=== PATIENT | male | born 1990 | race Hispanic/Latino ===

== ENCOUNTER 2018-05-22 18:21 | Emergency (ER) | payer SELFPAY ==
[~2018-05-22] VITALS: Ht 172.7 cm; Wt 90.7 kg
[2018-05-22] MEDS ORDERED: TRIMETHOPRIM/SULFAMETHOXAZOLE 160-800 MG TAB PO ONE (19:30)
[2018-05-22] MEDS ORDERED: CLINDAMYCIN PHOS 600 MG/ 4 ML VIAL IM ONE (19:30)
== END 2018-05-22 19:55 | disposition home or self-care (01) ==
LOC: FSED 18:21
DX: L02.414 Cutaneous abscess of left upper limb (principal)
CPT/HCPCS: 87071; 87186; 87205; 99283

== ENCOUNTER 2021-04-15 19:44 | Emergency (ER) | payer SELFPAY ==
[~2021-04-15] VITALS: Ht 172.7 cm; Wt 94.8 kg
[2021-04-15] MEDS ORDERED: IBUPROFEN 600 MG TAB PO STA (21:18)
[2021-04-15] MEDS ORDERED: IBUPROFEN 600 MG TAB ONE (21:37)
[2021-04-15] MEDS ORDERED: PENICILLIN V P500 MG PO (21:58)
[2021-04-15] MEDS ORDERED: IBUPROFEN600 MG PO (21:58)
[2021-04-15] MEDS ORDERED: HYDROCODONE/APAP 5MG-325MG TAB PO ONE (22:00)
[2021-04-15] MEDS ORDERED: HYDROCODON-ACE1 EA11 PO (22:05)
[2021-04-15] MEDS ORDERED: HYDROCODONE/APAP 5MG-325MG TAB ONE (22:14)
[2021-04-15 22:25] VITALS: BP 133/85
== END 2021-04-15 22:25 | disposition home or self-care (01) ==
LOC: FSED 21:20
DX: K08.89 Other specified disorders of teeth and supporting structures (principal); K03.81 Cracked tooth
CPT/HCPCS: 99283